=== PATIENT | female | born 1980 | race Caucasian/White ===

== ENCOUNTER 2019-09-19 17:02 | Emergency (ER) | payer OTHER, SELFPAY ==
[2019-09-19 17:38] VITALS: BP 144/92; PULSE 62; RESP 16; TEMP 36.7; O2SAT 98; BMI 50.4
--- NOTE | 2019-09-19 17:44 | XR_ITS ---
WS: [id number] HAND LEFT TECHNIQUE: 3 views of the left hand CLINICAL INFORMATION: L 4th digit pain COMPARISON: None. FINDINGS: Normal metacarpals. Normal MCP joint. Metacarpal heads are normal in appearance. Normal PIP and DIP j oints. No evidence of acute fracture or dislocation. Radiocarpal joint: Normal. Carpal bones: Normal. XR/XR hand LT min 3V* [id number] IMPRESSION: Normal fourth digit
[2019-09-19 18:04] VITALS: BP 108/70; PULSE 59; RESP 14; TEMP 36.9; O2SAT 100
[2019-09-19 18:07] VITALS: PULSE 60
--- NOTE | 2019-09-19 18:26 | ED_ITS ---
HPI - Extremity Problem General: Chief complaint: Extremity Problem,Nontraumatic Stated complaint: swollen finger left hand Time Seen by Provider: 09/19/19 17:51 Source: patient Mode of arrival: ambulatory Limitations: no limitations History of Present Illness: HPI Narrative: 39 yo female patient presents to the ER c/o pain to left ring finger x 3 weeks. Pt states she has an appointment in 2 weeks with PCP. Pt denies any injury or trauma. Pt does have history of raynaud's Pt denies any radiation of pain and states it is her entire ring finger. MD Complaint: extremity pain Location: left Quality: burning, sharp and other (tingling sensation) Radiation: none Relieving factors: nothing Exacerbating factors: other (cold) Associated symptoms: Reports no associated symptoms; Deny chest pain, fever(s) or rash Review of Systems Const: Denies: fever, chills or fatigue Card: Denies: chest pain Resp: Denies: shortness of breath GI: Denies: abdominal pain Musc: Reports: joint pain (left 4th digit finger pain) and joint swelling; Denies: redness, joint warmth, joint stiffness or limited range of motion Skin/Breast: Denies: rash Neuro: Denies: headache PFSH ED PFSH: Statuses (acute, chronic, etc) shown below reflect problem list status as previously entered and may not be historically accurate Social History Smoking and tobacco status: never smoked Physical Exam Const: COMMON NORMALS: no apparent distress and no limitations Resp: COMMON NORMALS: normal respiratory effort Extremity: COMMON NORMALS: normal to inspection, full ROM, normal capillary refill, no joint enlargement and no clubbing, cyanosis or edema NARRATIVE EX TREMITY EXAM: pt has tenderness to entire left ring finger NVI no obvious deformity. there is no erythema noted Skin: COMMON NORMALS: no rashes or lesions noted GENERAL SKIN EXAM: no rashes or lesions noted Course ED course: Pt is well appearing non toxic and in no acute distress. Pt xray is normal. Pt is NVI. pt has histroy of raynauds this could potentially be gout versus nerve pain. I will ry steroids and Indomethcin and have f/u with pcp. there is no evidence of infection. Vital Signs: Vital signs: Vital Signs Temperature 98.4 F 09/19/19 18:04 Pulse Rate 60 09/19/19 18:07 Respiratory Rate 14 09/19/19 18:04 Blood Pressure 108/70 09/19/19 18:04 Pulse Oximetry 100 09/19/19 18:04 Discharge Plan Discharge Patient Disposition: Home, Self-Care Clinical Impression: Finger pain, left Condition: Stable Prescriptions: New prednisone 20 mg tablet 20 mg PO BID 5 Days Qty: 10 RF: 0 Referrals: Kofi Thorpe MD [Primary Care Provider] - (as needed) Discharge Diet: Advance as tolerated Discharge Activity: Resume usual activity Activity Restrictions/Additional Instructions: Please take meds as prescribed Please follow up with PCP Please return with any worsening of symptoms Coding Level of Care Code ED Law Office Assistant for Conrado Lozano Exam Problem Focused
--- NOTE | 2019-09-19 19:00 | W.ED.EXTPRO ---
HPI - Extremity Problem General: Chief complaint: Extremity Problem,Nontraumatic Stated complaint: swollen finger left hand Time Seen by Provider: 09/19/19 17:51 Source: patient Mode of arrival: ambulatory Limitations: no limitations History of Present Illness: Location: left Quality: burning, sharp and other (tingling sensation) Relieving factors: nothing Exacerbating factors: other (cold) Associated symptoms: Deny chest pain, fever(s) or rash Review of Systems Const: Denies: fever(s), chills, body aches, change in appetite, change in weight, fatigue, malaise or diaphoresis Eyes: Denies: change in vision, blurry vision, blind spots, photophobia, eye discomfort, eye discharge, eye redness, floaters or seeing flashes ENMT: Denies: throat pain, uvular edema, enlarged tonsils, odynophagia, hoarseness, mouth pain, swelling of lips/tongue, oral sores, bleeding gums, dental pain, dry mouth, ear or mastoid pain, ear discharge, Change in hearing, tinnitus, disequilibrium, nasal discharge, nasal congestion, post nasal drip or sinus pain Card: Denies: chest pain, palpitations, irregular heart rhythm, edema, swelling of feet/ankles, lightheadedness, syncope, pre-syncope, dyspnea on exertion, orthopnea, leg pain with exertion or acrocyanosis Resp: Denies: dyspnea, productive cough, non-productive cough, wheezing, stridor, pain on inspiration, change in phlegm color, hemoptysis or chest congestion GI: Denies: abdominal pain, nausea, vomiting, hematemesis, dysphagia, diarrhea, constipation, GI cramping, change in bowel habits or rectal pain : Denies: flank pain, difficulty voiding, dysuria, urinary frequency, urinary urgency, urinary hesitancy or hematuria Musc: Denies: neck pain, back pain, extremity pain, joint pain, joint swelling, redness, joint warmth or deformity Skin/Breast: Denies: rash, pruritus, erythema, sores, new lesions, changes in skin color or dry skin Neuro: Denies: headache(s), numbness in extremities, weakness in extremities, sensory changes, lack of coordination, difficulty walking, frequent falls, dizziness, vertigo, confusion, behavioral changes, Slurred speech present, difficulty communicating thoughts or seizure-like activity Psych: Denies: anxiety, depression, suicidal ideation or homicidal ideation Endo: Denies: polyuria, polydipsia, tired all the time, cold intolerance, excessive sweating, flushing, hot flashes or heat intolerance Rajat/Lymph: Denies: easy bruising, easy bleeding, petechiae, purpura, enlarged lymph nodes or tender lymph nodes All/Imm: Denies: urticaria, throat swelling, tongue swelling, facial swelling, acute wheezing or itchy eyes PFSH ED PFSH: Statuses (acute, chronic, etc) shown below reflect problem list status as previously entered and may not be historically accurate Medical History Tenosynovitis of finger Surgical History H/O: hysterectomy History of esophagogastroduodenoscopy (EGD) History of tonsillectomy Family History Denies family history of Diabetes Hypertension Social History Smoking and tobacco status: never smoked Physical Exam Const: COMMON NORMALS: no acute distress and no limitations GENERAL APPEARANCE: cooperative HENMT: THROAT: no uvular edema Resp: COMMON NORMALS: normal respiratory effort, No retractions, No use of accessory muscles and clear to auscultation bilaterally AUSCULTATION: clear to auscultation bilaterally Cardio: COMMON NORMALS: regular rate and regular rhythm RATE: regular rate RHYTHM: regular rhythm Extremity: COMMON NORMALS: full ROM and capillary refill normal LEFT UPPER EXTREMITY: Yes hand & digits (swollen 2nd digit full ROM and NVI distally) Course Vital Signs: Vital signs: Vital Signs Temperature 98.0 F 09/19/19 19:29 Pulse Rate 57 L 09/19/19 19:29 Respiratory Rate 11 L 09/19/19 19:29 Blood Pressure 116/71 09/19/19 19:29 Pulse Oximetry 99 09/19/19 19:29 Discharge Plan Discharge Patient Disposition: Home Clinical Impression: Finger pain, left Condition: Stable Prescriptions: No Action azithromycin 250 mg tablet See Rx Instructions PO .COMPLEX Qty: 6 RF: 0 lidocaine HCl 10 mg/mL (1 %) solution 10 ml Tendon Sheath Inj. ONCE Qty: 1 RF: 0 betamethasone acet,sod phos [Celestone Soluspan] 6 mg/mL suspension 6 mg Tendon Sheath Inj. ONCE Qty: 1 RF: 0 meloxicam 7.5 mg tablet 7.5 mg PO DAILY Qty: 30 RF: 3 (DME) tennis elbow strap See Rx Instructions .Route .MEDSUPPLY Qty: 1 RF: 0 tretinoin 0.05 % cream 1 applic TOPICAL DAILY RF: 0 lithium carbonate 450 mg tablet extended release 1,350 mg PO DAILY RF: 0 pantoprazole 40 mg tablet,delayed release (DR/EC) 40 mg PO DAILY RF: 0 hydrocodone-acetaminophen 5-325 mg tablet 1 tab PO Q4H PRN (Reason: pain) Qty: 30 RF: 0 Discharge Orders: Discharge Order (Routine); Ordered 06/29/20 Ordered By: Lesley Martinez Referrals: Kofi Thorpe MD [Primary Care Provider] - (as needed) Discharge Diet: Advance as tolerated Discharge Activity: Resume usual activity Activity Restrictions/Additional Instructions: Please take meds as prescribed Please follow up with PCP Please return with any worsening of symptoms Coding Level of Care Code ED Structures Mechanic for Conrado Lozano
[2019-09-19 19:29] VITALS: BP 116/71; PULSE 57; RESP 11; TEMP 36.7; O2SAT 99
== END 2019-09-19 19:30 | disposition home or self-care (01) ==
PROVIDERS: Emergency Provider Registered Nurse; Family Provider Family Medicine; PCP Family Medicine
DX: M79.645 Pain in left finger(s) (principal); I73.00 Raynaud's syndrome without gangrene
CPT/HCPCS: 73130; 99281; 99282

== ENCOUNTER 2020-01-26 05:54 | Day surgery (SDC) | payer OTHER, SELFPAY ==
[2020-01-25 08:38] VITALS: BMI 51.0
[2020-01-26 06:11] VITALS: BP 122/80; PULSE 67; RESP 18; TEMP 36.7; O2SAT 98
--- NOTE | 2020-01-26 06:28 | W.PM.OPSUD ---
Surgery/Procedure H&P Update DATE OF PROCEDURE: January 26, 2020 DATE H&P PERFORMED: 01/12/20 H&P UPDATE INFORMATION: I have reviewed H&P completed within last 30 days, I have examined patient prior to procedure and No changes to prior documentation PREOP DIAGNOSIS: left ring trigger finger PRIMARY INDICATION FOR PROCEDURE: as above PLANNED PROCEDURE: Operation Date: 01/26/20 07:00 Proposed Procedures p left ring finger trigger digit release with synovectomy [id number] M65.9(Left) - Raul Chaney DO
--- NOTE | 2020-01-26 06:29 | PM.OP ---
Operative Report Date of procedure: January 26, 2020 Pre-op Diagnosis: left ring trigger finger Post-op diagnosis: same Post-op Findings: see below Procedure Done: release left ring finger A1 jose ramon Pathology: none sent Surgeon: Raul Chaney Anesthesia: MAC and Local Estimated blood loss (mL): 2 Tourniquet time (min): 15 Complications: none Findings: thickened synovium covering flexor tendons at level of A-1 jose ramon left ring finger. Increased amount of synovial fluid within the tendon sheath noted when sheath opened. Condition: stable Disposition: same day Brief History: 39-year-old white female with persistent triggering and discomfort related to her left ring finger. She's failed conservative treatment to include oral anti-inflammatory medications as well as tendon sheath injection. She presents today for elective release of her left ring trigger digit. Risks of surgery include aren't limited to failure to leave all symptoms, stiffness at the MCP or PIP joints. Wound healing complications possible recurrence. All questions are answered patient agreeable to proceed with surgery. Procedure: 1.5 zinacef Patient identified. Surgical site signed. Surgical permit signed. Patient 1.5 g of zinacef intravenously for surgical prophylaxis. She was taken to the operating room. She is placed supine on the operating room table. She received intravenous sedation. Time out was performed. Using alcohol prep a digital block of the left long finger was performed using 10 mL of a one-to-one mixture 1% lidocaine and half percent Marcaine. Tourniquet was placed but the upper aspect of the left upper extremity. The patient was sterilely prepped and draped usual fashion. The operative limb was exsanguinated using Esmarch bandage and the tourniquet inflated to 250 mm Hg pressure. A 2 cm transverse incision overlying the ring finger flexor tendons in the area of the A1 jose ramon was made with a skin knife. The incision was deepened using tenotomy scissors exposing underlying flexor tendons and tendon sheath. Retractors were placed on the radial and ulnar aspects of the flexor tendons to the left long finger. Using tenotomy scissors the A1 jose ramon was released. Using a hemostat verified that the release was complete. Using a hemostat we remove the flexor tendons from the wound and inspected them. No tendon pathology was noted other than thickening of the overlying tenosynovium. The wound was irrigated with Betadine-containing saline solution and antibiotic containing saline solution. Skin was closed with 4-0 nylon sutures. The patient was aroused from sedation and asked to flex and extend her finger he/she was able to do so without triggering of the left long finger. Antibiotic ointment was applied to the incision line followed by sterile dressings. The tourniquet was deflated during application of dressings. The patient was transferred back to outpatient surgery. All counts are correct. He/She tolerated surgery well.
[2020-01-26] MEDS: sodium chloride 0.9% 1,000 ML 30 ML IV (06:30)
[2020-01-26] MEDS: ketorolac 30 mg/mL INJ IVP (06:33)
--- NOTE | 2020-01-26 06:42 | ANES.PREANE2 ---
Pre-Anesthetic Assessment Pre-Anesthetic Assessment: Height/Weight: Height 1.55 m Weight 122.47 kg Temp Pulse Resp BP Pulse Ox 98.1 F 67 18 122/80 98 01/26/20 06:11 01/26/20 06:11 01/26/20 06:11 01/26/20 06:11 01/26/20 06:11 Preop Diagnosis: left ring trigger finger Proposed Procedure: Operation Date: 01/26/20 07:00 Proposed Procedures p left ring finger trigger digit release with synovectomy [id number] M65.9(Left) - Raul Chaney, DO Was Beta Sandy taken within 24 hours: N/A Last intake: Intake Last Liquid Date 01/25/20 Last Liquid Time 20:30 Last Solid Date 01/25/20 Last Solid Time 17:00 Social: Social History: No alcohol and No tobacco Exam: Pre-Anes Outpt Exam: alert, oriented x 3, clear to auscultation bilaterally and regular rate & rhythm Airway: Submandibular: WNL Cervical ROM: WNL MP: 1 Dentition: Full History/ROS: No significant history except as noted Pulmonary: Pulmonary: None reported CV/HEM: CV/HEM: None reported : : None reported Hepatic: Hepatic: None reported GI: GI: GERD Musc/skel: Musc/skel: None reported Neuropsych: Neuropsych: Bipolar Anesthetic Plan: ASA status: 2 Anesthesia: MAC PFSH Anesthesia PFSH: Medical History Tenosynovitis of finger Surgical History H/O: hysterectomy History of esophagogastroduodenoscopy (EGD) History of tonsillectomy Family History Denies family history of Diabetes Hypertension Social History Smoking and tobacco status: never smoked Data Anesthesia Cardiac Studies: No Data to Display
[2020-01-26] MEDS: cefUROXime 1,500 MG in sodium chloride 0.9% (plus) 50 ML 100 MG IV (06:57)
[2020-01-26] MEDS: lidocaine 1% INJ 20 mL INJECTION (07:13)
[2020-01-26] MEDS: neomycin-poly-bacitracin oint 28 gm 1 APPLIC TOPICAL (07:30)
[2020-01-26 07:50] VITALS: BP 136/83; PULSE 73; RESP 18; TEMP 36.7; O2SAT 98
[2020-01-26 08:09] VITALS: BP 143/79; PULSE 67; RESP 18; TEMP 36.7; O2SAT 98
== END 2020-01-26 08:17 | disposition home or self-care (01) ==
PROVIDERS: PCP Family Medicine; Visit Provider Orthopaedic Surgery
PROC: (CPT 26055; principal; 2020-01-26 07:00)
DX: M65.342 Trigger finger, left ring finger (principal); K21.9 Gastro-esophageal reflux disease without esophagitis
CPT/HCPCS: 26055; 12345; 96365; 96374; J0131; J0697; J1580; J1885; J2001; J2704; J3010; J3490; J7030

== ENCOUNTER → 2020-02-24 15:00 | Outpatient (BNVA) | payer OTHER, SELFPAY | PROVIDERS: PCP Family Medicine; Visit Provider Nurse Practitioner Family | DX: R05 Cough (principal) | CPT/HCPCS: 87635 ==

== ENCOUNTER → 2020-11-12 08:56 | Outpatient (BNVA) | payer OTHER, SELFPAY | PROVIDERS: PCP Family Medicine; Visit Provider Internal Medicine Rheumatology | DX: M25.50 Pain in unspecified joint (principal); Z79.899 Other long term (current) drug therapy; M77.10 Lateral epicondylitis, unspecified elbow; M70.61 Trochanteric bursitis, right hip; M70.62 Trochanteric bursitis, left hip; Y93.9 Activity, unspecified; Z68.39 Body mass index [BMI] 39.0-39.9, adult | CPT/HCPCS: 99204 ==

== ENCOUNTER 2020-11-12 15:06 | Outpatient (CLI) | payer OTHER, SELFPAY ==
--- NOTE | 2020-11-12 15:33 | XRR_ITS ---
PROCEDURE INFORMATION: Exam: XR Left Hand Exam date and time: 11/12/2020 3:35 PM Age: 40 years old Clinical indication: Pain; Hand; Left; Prior surgery; Surgery type: Trigger finger; Additional info: M25.50 - pain in unspecified joint TECHNIQUE: Imaging protocol: XR Left hand. Views: 3 or more views. Total images: 3 COMPARISON: CR XR hand LT min 3V* [id number] 09/19/2019 6:28 PM FINDINGS: Bones/joints: No visible acute osseous abnormality, fracture, subluxation, or dislocation. No radiographically visible joint effusion. Soft tissues: Soft tissues without evidence of edema, swelling, contusion, emphysema, or radiopaque foreign body. XR/XR hand LT min 3V* [id number] IMPRESSION: Nonacute.
--- NOTE | 2020-11-12 15:33 | XRR_ITS ---
PROCEDURE INFORMATION: Exam: XR Pelvis Exam date and time: 11/12/2020 3:35 PM Age: 40 years old Clinical indication: Hip pain; Bilateral; Additional info: M25.50 - pain in unspecified joint TECHNIQUE: Imaging protocol: XR pelvis. Views: 1 or 2 view. Total images: 1 COMPARISON: CT abdomen pelvis w con* [id number] 11/20/2016 12:02 PM FINDINGS: Bones/joints: Unremarkable. No acute fracture. Soft tissues: Unremarkable. XR/XR pelvis 1-2V* [id number] IMPRESSION: No acute findings.
--- NOTE | 2020-11-12 15:33 | XRR_ITS ---
PROCEDURE INFORMATION: Exam: XR Chest Exam date and time: 11/12/2020 3:35 PM Age: 40 years old Clinical indication: Patient HX: Chest pain around sternum; Additional info: M25.50 - pain in unspecified joint TECHNIQUE: Imaging protocol: XR of the chest Views: 2 views. Total images: 2 COMPARISON: CR Chest 1 [place] [id number] 11/14/2016 6:45 AM FINDINGS: Lungs: No visible active interstitial or alveolar airspace disease. Pleural spaces: Unremarkable. No pleural effusion. No pneumothorax. Heart/Mediastinum: Unremarkable. No cardiomegaly. Bones/joints: Increased thoracic kyphosis. Pectus carinatum. Mild scoliotic curvature of the spine. Organs: Status post cholecystectomy. XR/XR chest 2V* [id number] IMPRESSION: Nonacute.
[2020-11-12 17:21] LABS: 25 Hydroxy Vitamin D 15 ng/mL (30-100); C Reactive Protein 1.8 mg/L (0.0-4.9); Thyroid Stimulating Hormone 2.31 uIU/mL (0.27-4.20)
[2020-11-12 17:57] LABS: Erythrocyte Sedimentation Rate 24 mm/hr (0-15)
[2020-11-14 12:37] LABS: Cyclic Citrullinated Peptide <16 UNITS
== END 2020-11-12 15:07 | disposition home or self-care (01) ==
LOC: LAB 15:10
PROVIDERS: PCP Family Medicine; Visit Provider Internal Medicine Rheumatology
DX: M25.50 Pain in unspecified joint (principal); Z68.39 Body mass index [BMI] 39.0-39.9, adult; Z79.899 Other long term (current) drug therapy
CPT/HCPCS: 36415; 71046; 72170; 73130; 82306; 84439; 84443; 85651; 86140

== ENCOUNTER → 2020-12-12 13:56 | Outpatient (BNVA) | payer OTHER, SELFPAY | PROVIDERS: PCP Family Medicine; Visit Provider Internal Medicine Rheumatology | DX: M25.50 Pain in unspecified joint (principal); Z79.899 Other long term (current) drug therapy; M77.11 Lateral epicondylitis, right elbow; M77.12 Lateral epicondylitis, left elbow; M70.61 Trochanteric bursitis, right hip; M70.62 Trochanteric bursitis, left hip; Y93.9 Activity, unspecified | CPT/HCPCS: 99214 ==

== ENCOUNTER 2021-03-27 08:38 | Outpatient (CLI) | payer OTHER, SELFPAY ==
[2021-03-27 10:48] LABS: Basophils # 0.1 10^3/uL (0.0-0.1); Basophils % 0.8 %; Eosinophils # 0.4 10^3/uL (0.0-0.8); Eosinophils % 3.4 %; Hematocrit 41.8 % (37.0-47.0); Hemoglobin 12.4 g/dL (11.5-15.3); Lymphocytes # 2.2 10^3/uL (0.8-4.8); Lymphocytes % 20.8 %; Mean Corpuscular HGB Conc 29.7 g/dL (30.0-36.0); Mean Corpuscular Hemoglobin 30.3 pg (28.0-34.0); Mean Corpuscular Volume 102.2 fL (81-99); Monocytes # 0.7 10^3/uL (0.2-0.9); Neutrophils # 7.16 10^3/uL (1.8-7.7); Neutrophils % 67.7 %; Nucleated Red Blood Cells % 0 %; Platelet Count 297 10^3/cmm (130-400); Red Blood Count 4.09 10^6/uL (4.1-5.3); Red Cell Distribution Width 14.1 % (12.1-15.1); White Blood Count 10.6 10^3/uL (4.0-10.0)
[2021-03-27 11:21] LABS: Alanine Aminotransferase 19 U/L (0-33); Albumin Level 4.4 g/dL (3.5-5.2); Alkaline Phosphatase 54 IU/L (35-105); Aspartate Amino Transferase 18 U/L (0-32); C Reactive Protein 0.6 mg/L (0.0-4.9); Globulin 2.6 g/dL (1.3-4.6); Glomerular Filtration Rate 137.4 mL/min (90-130); Total Bilirubin 0.4 mg/dL (0.15-1.2)
[2021-03-29 19:23] LABS: HLA-B27 NEGATIVE (NEGATIVE)
== END 2021-03-27 08:39 | disposition home or self-care (01) ==
PROVIDERS: PCP Family Medicine; Visit Provider Internal Medicine Rheumatology
DX: M19.90 Unspecified osteoarthritis, unspecified site (principal); M45.9 Ankylosing spondylitis of unspecified sites in spine; Z79.899 Other long term (current) drug therapy
CPT/HCPCS: 36415; 80076; 82565; 85025; 86140; 86812

== ENCOUNTER 2021-07-15 16:16 | Outpatient (CLI) | payer OTHER, SELFPAY ==
[2021-07-15 16:40] LABS: Basophils # 0.1 10^3/uL (0.0-0.1); Basophils % 0.6 %; Eosinophils % 0.2 %; Hematocrit 37.9 % (37.0-47.0); Hemoglobin 11.6 g/dL (11.5-15.3); Lymphocytes # 2.7 10^3/uL (0.8-4.8); Lymphocytes % 31.1 %; Mean Corpuscular HGB Conc 30.6 g/dL (30.0-36.0); Mean Corpuscular Hemoglobin 30.4 pg (28.0-34.0); Mean Corpuscular Volume 99.5 fl (81-99); Mean Platelet Volume 10.2 fL (7.4-10.4); Monocytes # 0.7 10^3/uL (0.2-0.9); Monocytes % 8.4 %; Neutrophils % 59.4 %; Nucleated Red Blood Cells % 0 %; Platelet Count 331 10^3/cmm (130-400); Red Blood Count 3.81 10^6/uL (4.1-5.3); Red Cell Distribution Width 13.6 % (12.1-15.1); White Blood Count 8.6 10^3/uL (4.0-10.0)
[2021-07-15 17:34] LABS: Alanine Aminotransferase 14 U/L (0-33); Albumin Level 4.5 g/dL (3.5-5.2); Alkaline Phosphatase 54 IU/L (35-105); Aspartate Amino Transferase 14 U/L (0-32); Globulin 2.2 g/dL (1.3-4.6); Glomerular Filtration Rate 111.3 mL/min (90-130); Total Bilirubin 0.3 mg/dL (0.15-1.2); Total Protein 6.7 g/dL (6.6-8.7)
== END 2021-07-15 16:17 | disposition home or self-care (01) ==
PROVIDERS: PCP Family Medicine; Visit Provider Internal Medicine Rheumatology
DX: M25.50 Pain in unspecified joint (principal); Z79.899 Other long term (current) drug therapy
CPT/HCPCS: 36415; 80076; 82565; 85025

== ENCOUNTER 2021-10-28 13:37 | Outpatient (CLI) | payer OTHER, SELFPAY ==
[2021-10-28 14:10] LABS: Basophils % 0.5 %; Eosinophils # 0.3 10^3/uL (0.0-0.8); Eosinophils % 4.7 %; Hematocrit 41.2 % (37.0-47.0); Hemoglobin 12.4 g/dL (11.5-15.3); Lymphocytes # 1.2 10^3/uL (0.8-4.8); Lymphocytes % 18.5 %; Mean Corpuscular HGB Conc 30.1 g/dL (30.0-36.0); Mean Corpuscular Hemoglobin 31.6 pg (28.0-34.0); Mean Corpuscular Volume 104.8 fl (81-99); Mean Platelet Volume 10.4 fL (7.4-10.4); Monocytes # 0.9 10^3/uL (0.2-0.9); Monocytes % 13.3 %; Neutrophils # 4.16 10^3/uL (1.8-7.7); Neutrophils % 62.5 %; Nucleated Red Blood Cells % 0 %; Platelet Count 275 10^3/cmm (130-400); Red Blood Count 3.93 10^6/uL (4.1-5.3); Red Cell Distribution Width 14.5 % (12.1-15.1); White Blood Count 6.6 10^3/uL (4.0-10.0)
[2021-10-28 14:38] LABS: Alanine Aminotransferase 28 U/L (0-33); Albumin Level 4.4 g/dL (3.5-5.2); Alkaline Phosphatase 65 IU/L (35-105); Aspartate Amino Transferase 21 U/L (0-32); C Reactive Protein 9.7 mg/L (0.0-4.9); Globulin 3.2 g/dL (1.3-4.6); Glomerular Filtration Rate 110.7 mL/min (90-130); Total Bilirubin 0.3 mg/dL (0.15-1.2); Total Protein 7.6 g/dL (6.6-8.7)
== END 2021-10-28 13:38 | disposition home or self-care (01) ==
PROVIDERS: PCP Family Medicine; Visit Provider Internal Medicine Rheumatology
DX: M25.50 Pain in unspecified joint (principal); Z79.899 Other long term (current) drug therapy
CPT/HCPCS: 80076; 82565; 85025; 86140

== ENCOUNTER → 2022-07-03 13:32 | Outpatient (BNVA) | payer OTHER, SELFPAY | PROVIDERS: PCP Family Medicine; Visit Provider Podiatrist Foot & Ankle Surgery | DX: M25.572 Pain in left ankle and joints of left foot (principal); M76.822 Posterior tibial tendinitis, left leg; Z87.81 Personal history of (healed) traumatic fracture | CPT/HCPCS: 73630 ==

== ENCOUNTER 2022-07-13 15:22 | Outpatient (CLI) | payer OTHER, SELFPAY ==
[2022-07-13 15:40] LABS: Basophils # 0.1 10^3/uL (0.0-0.1); Basophils % 0.6 %; Eosinophils # 0.4 10^3/uL (0.0-0.8); Eosinophils % 4.1 %; Hematocrit 37.1 % (37.0-47.0); Hemoglobin 11.5 g/dL (11.5-15.3); Lymphocytes # 2.2 10^3/uL (0.8-4.8); Lymphocytes % 22.8 %; Mean Corpuscular Hemoglobin 31.6 pg (28.0-34.0); Mean Corpuscular Volume 101.9 fl (81-99); Mean Platelet Volume 10.5 fL (7.4-10.4); Monocytes % 10.1 %; Neutrophils # 5.84 10^3/uL (1.8-7.7); Neutrophils % 62.2 %; Nucleated Red Blood Cells % 0 %; Platelet Count 337 10^3/cmm (130-400); Red Blood Count 3.64 10^6/uL (4.1-5.3); Red Cell Distribution Width 13.9 % (12.1-15.1); White Blood Count 9.4 10^3/uL (4.0-10.0)
[2022-07-13 16:08] LABS: Alanine Aminotransferase 10 U/L (0-33); Albumin Level 4.1 g/dL (3.5-5.2); Alkaline Phosphatase 60 U/L (35-105); Aspartate Amino Transferase 13 U/L (0-32); Glomerular Filtration Rate 92.7 mL/min (90-130); Total Bilirubin 0.2 mg/dL (0.15-1.2); Total Protein 7.1 g/dL (6.6-8.7)
== END 2022-07-13 15:23 | disposition home or self-care (01) ==
LOC: LAB 15:24
PROVIDERS: PCP Family Medicine; Visit Provider Internal Medicine Rheumatology
DX: M19.90 Unspecified osteoarthritis, unspecified site (principal); Z79.899 Other long term (current) drug therapy
CPT/HCPCS: 36415; 80076; 82565; 85025; 86140

== ENCOUNTER 2022-07-17 11:38 | Outpatient (CLI) | payer OTHER, SELFPAY ==
--- NOTE | 2022-07-17 12:00 | MR_ITS ---
WS: [id number] MRI LEFT FOOT non- CONTRAST. COMPARISON: Radiograph 07/03/2022, prior LEFT ankle MRI 12/13/2017 Multiplanar, multisequence imaging is performed without contrast. As per history has a prior tendon transfer. This appears to be the flexor digitorum longus which is s maller caliber and surrounded by some increased fluid. Small amount of increased fluid within the ten don suggesting a split tear just lateral to the calcaneus. This may not be acute. This tendon extends to the navicular. There is also small amount of increased fluid in the adjacent posterior tibial ten don sheath which is normal caliber. The peroneus brevis and longus tendons are normal. Achilles tendo n is normal. There is no marrow edema or fracture. There is mild flattening of the normal arch of the foot which i s better appreciated on radiographs. No marrow edema. Small amount of fluid in the posterior recess o f the ankle. The visualized mid and hindfoot are negative. The distal foot is not included as the sym ptoms were more in the posterior and midfoot. No widening of the Lisfranc joint. The extensor tendons are normal. MR/MR foot LT wo con* [id number] IMPRESSION: 1. Abnormal appearance to the flexor digitorum longus tendon. As per history t here has been a prior tendon transfer. This tendon is small caliber but does ex tend to the navicular which is probably the transverse site. There is no full-t hickness tear or retraction. There is increased fluid in the tendon sheath. Nery pect there may be a split tear just lateral to the mid calcaneus. 2. No marrow edema or fracture.
== END 2022-07-17 11:39 | disposition home or self-care (01) ==
PROVIDERS: PCP Family Medicine; Visit Provider Podiatrist Foot & Ankle Surgery
DX: M76.822 Posterior tibial tendinitis, left leg (principal)
CPT/HCPCS: 73718

== ENCOUNTER 2022-12-29 12:44 | Outpatient (CLI) | payer OTHER, SELFPAY ==
--- NOTE | 2022-12-29 12:59 | MR_ITS ---
WS: [id number] MRI HEAD WITH CONTRAST TECHNIQUE: Sagittal T1, T2 axial, T2 axial FLAIR, axial susceptibility weighted imaging, axial diffus ion weighted images, and coronal T2 images were obtained. Pre and post-T1 axial and post T1 coronal i mages. ADC and FSPGR images. CLINICAL INFORMATION: HEADACHE COMPARISON: None. 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 Normal 4th ventricle. No hydrocephalus. Mild crowding of the foramen magnum. Normal brain stem signal. Normal posterior fossa. Normal vascular flow voids at the skull base. No extra-axial fluid collection s. No evidence of mass or mass effect. No hemosiderin on susceptibly weighted images. Normal optic ch iasm and pituitary infundibulum. Temporal lobes and hippocampal formations are normal in appearance. Normal cavernous sinuses and Meckel's cave. No abnormal gadolinium enhancement. Normal dural venous sinuses. Normal posterior nasopharynx. Normal parapharyngeal fat. MR/MR head wo/w con [id number] IMPRESSION: 1. No evidence of restricted diffusion to suggest acute ischemia. 2. No suspicious intracanal signal abnormalities. 3. Chiari 1 malformation with cerebellar tonsils 5 millimeters below the damon en magnum. Normal 4th ventricle. Normal brain stem signal. Noncontrast MRI cerv ical spine recommended to exclude syrinx in the setting of Chiari malformation. 4. No hemosiderin on susceptibly weighted images. 5. No abnormal gadolinium enhancement. 6. No hemosiderin on susceptibly weighted images.
[2022-12-29] MEDS: gadobenate dimeglumine 20 mL vial IV (14:03)
== END 2022-12-29 12:45 | disposition home or self-care (01) ==
LOC: RAD 12:47
PROVIDERS: PCP Family Medicine; Visit Provider Family Medicine
DX: R51.9 Headache, unspecified (principal); G93.5 Compression of brain
CPT/HCPCS: 70553; A9577

== ENCOUNTER 2023-01-29 07:06 | Outpatient (CLI) | payer OTHER, SELFPAY ==
--- NOTE | 2023-01-29 | MR_ITS ---
WS: [id number] MRI CERVICAL SPINE NONCONTRAST TECHNIQUE: Sagittal T1, T2 and STIR imaging. Axial T2, gradient, and fiesta imaging. CLINICAL INFORMATION: CHIARI COMPARISON: None. FINDINGS: Straightening of the normal cervical lordosis. No high-grade central canal stenosis. Cord signal is n ormal. Stable Chiari I malformation. No syrinx in the cervical cord. Cord signal is normal. C2-C3: Normal C3-C4: Normal. C4-C5: Mild facet arthropathy. Spinal canal and foramen are patent. C5-C6: Minimal disc bulging. Mild facet arthropathy. Mild LEFT foraminal narrowing. Spinal canal and foramen are patent. C6-C7: Minimal disc bulging. Spinal canal and foramen are patent. C7-T1: Normal. Visualized brain stem structures: Normal. Prevertebral soft tissues: Normal. MR/MR cervical spin wo con* [id number] IMPRESSION: 1. Stable Chiari 1 malformation. No syrinx in the cervical cord. 2. Cord signal is normal. 3. No significant spinal canal or foraminal narrowing. 4. Mild facet arthropathy C4-C5 and C5-C6. 5. Mild LEFT C5-C6 bony foraminal narrowing.
== END 2023-01-29 07:07 | disposition home or self-care (01) ==
PROVIDERS: PCP Family Medicine; Visit Provider Family Medicine
DX: Q07.00 Arnold-Chiari syndrome without spina bifida or hydrocephalus (principal)
CPT/HCPCS: 72141

== ENCOUNTER → 2023-08-17 08:39 | Outpatient (BNVA) | payer OTHER, SELFPAY | PROVIDERS: PCP Family Medicine; Referring Provider Family Medicine; Visit Provider Psychiatry & Neurology Neurology | DX: R51.9 Headache, unspecified (principal); G40.A09 Absence epileptic syndrome, not intractable, without status epilepticus; R55 Syncope and collapse | CPT/HCPCS: 36415; 82306; 82746; 83921; 84439; 84443; 84481 ==

== ENCOUNTER → 2023-09-27 15:33 | Outpatient (BNVA) | payer OTHER, SELFPAY | PROVIDERS: PCP Family Medicine; Visit Provider Internal Medicine Rheumatology | DX: M19.90 Unspecified osteoarthritis, unspecified site (principal); Z79.899 Other long term (current) drug therapy; Z71.85 Encounter for immunization safety counseling | CPT/HCPCS: 36415; 80076; 82565; 85025; 85651; 86140 ==

== ENCOUNTER → 2023-09-29 15:45 | Outpatient (BNVA) | payer OTHER, SELFPAY | PROVIDERS: PCP Family Medicine; Referring Provider Specialist; Visit Provider Specialist | DX: M25.561 Pain in right knee (principal) | CPT/HCPCS: 73560; 73565 ==

== ENCOUNTER 2023-10-13 15:34 | Outpatient (CLI) | payer OTHER, SELFPAY | END 2023-10-13 15:35 | disposition home or self-care (01) | LOC: LAB 15:35 | PROVIDERS: PCP Family Medicine; Visit Provider Psychiatry & Neurology Neurology | DX: R94.01 Abnormal electroencephalogram [EEG] (principal); R51.9 Headache, unspecified; G40.A09 Absence epileptic syndrome, not intractable, without status epilepticus; R55 Syncope and collapse | CPT/HCPCS: 36415; 82607 ==

== ENCOUNTER 2023-11-19 15:28 | Outpatient (CLI) | payer OTHER, SELFPAY ==
--- NOTE | 2023-11-19 16:00 | MR_ITS ---
WS: [id number] MRI RIGHT KNEE HISTORY: right knee pain COMPARISON: Knee radiograph 09/29/2023 Anterior cruciate ligament: Intact. Posterior cruciate ligament: Intact. Medial collateral ligament: Increased fluid along the medial collateral ligament, greatest below the joint line. The very distal MCL appears thinned and suspect mild sprain. No retraction or full-thickn ess tear. Posterior lateral corner structures: Intact. Medial menisci: Intact. Normal signal, size and shape. Lateral meniscus: Intact. Normal signal, size and shape. Extensor mechanism: Distal quadriceps tendon and patellar tendons are intact. Fluid and soft tissue: Small suprapatellar joint effusion. Moderate Hurst's cyst containing debris an d loose bodies. Osseous and articular structures: Patellofemoral compartment: Lateral subluxation of the patella. The patellar retinaculum appears inta ct. The lateral patellar retinaculum is thinned and stretched but there is no edema. Mild chondromala nancy and thinning of the cartilage. Medial compartment: Very minimal narrowing medial compartment. Marrow edema in the medial tibial plat eau but no fracture. Lateral compartment: Very mild narrowing. No marrow edema. IMPRESSION: 1. Increased fluid surrounding the MCL distal to the knee joint. The distal MCL is not imaged in its entirety within the axial plane but there is probably a mild sprain. 2. Moderate amount of marrow edema in the medial tibial plateau. No fracture. 3. Moderate size Hurst's cyst with loose bodies and debris. 4. Lateral subluxation of the patella. Thinning of the lateral patellar retinaculum appears chronic. May be from a prior dislocation and tear with healing.
== END 2023-11-19 15:29 | disposition home or self-care (01) ==
PROVIDERS: PCP Family Medicine; Visit Provider Specialist
DX: S83.011A Lateral subluxation of right patella, initial encounter (principal); M71.21 Synovial cyst of popliteal space [Baker], right knee; M23.41 Loose body in knee, right knee; X58.XXXA Exposure to other specified factors, initial encounter
CPT/HCPCS: 73721

== ENCOUNTER → 2024-02-22 06:57 | Outpatient (BNVA) | payer OTHER, SELFPAY | PROVIDERS: PCP Family Medicine; Visit Provider Podiatrist Foot & Ankle Surgery | DX: M79.671 Pain in right foot; M21.611 Bunion of right foot; M21.41 Flat foot [pes planus] (acquired), right foot; M76.821 Posterior tibial tendinitis, right leg; M20.41 Other hammer toe(s) (acquired), right foot | CPT/HCPCS: 73630 ==

== ENCOUNTER 2024-05-26 12:54 | Outpatient (CLI) | payer OTHER, SELFPAY ==
[2024-05-26 13:39] LABS: Basophils # 0.1 10^3/uL (0.0-0.1); Basophils % 0.9 %; Eosinophils # 0.6 10^3/uL (0.0-0.8); Eosinophils % 7.9 %; Hematocrit 36.7 % (36-47); Lymphocytes % 26.2 %; Mean Corpuscular HGB Conc 30.5 g/dL (30-55); Mean Corpuscular Hemoglobin 29.1 pg (27-33); Mean Corpuscular Volume 95.3 fl (85-98); Mean Platelet Volume 11.1 fL (7.4-10.4); Monocytes # 0.8 10^3/uL (0.2-0.9); Neutrophils # 4.08 10^3/uL (1.8-7.7); Neutrophils % 54.7 %; Nucleated Red Blood Cells % 0 %; Platelet Count 239 10^3/cmm (157-399); Red Blood Count 3.85 10^6/uL (3.85-5.65); Red Cell Distribution Width 14.9 % (12.1-15.1); White Blood Count 7.47 10^3/uL (3.29-11.43)
[2024-05-26 13:57] LABS: Alkaline Phosphatase 61 U/L (35-105); Aspartate Amino Transferase 22 U/L (0-32); Globulin 2.7 g/dL (1.3-4.6); Glomerular Filtration Rate 109.6 mL/min (90-130); Total Bilirubin 0.4 mg/dL (0.15-1.2); Total Protein 6.7 g/dL (6.6-8.7)
[2024-05-26 14:09] LABS: Alanine Aminotransferase 20 U/L (0-33)
[2024-05-30 16:49] LABS: HIV RNA (CPY/ML) NOT DETECTED (NOT DETECTED); HIV RNA LOG NOT DETECTED copies/mL (NOT DETECTED)
== END 2024-05-26 12:55 | disposition home or self-care (01) ==
LOC: LAB 12:56
PROVIDERS: Absent Provider Psychiatry & Neurology Neurology; PCP Family Medicine; Visit Provider Internal Medicine Rheumatology
DX: Z79.899 Other long term (current) drug therapy (principal); G93.2 Benign intracranial hypertension; M19.90 Unspecified osteoarthritis, unspecified site
CPT/HCPCS: 36415; 80076; 82565; 85025; 86140; 87536

== ENCOUNTER 2024-06-08 15:16 | Outpatient (CLI) | payer OTHER, SELFPAY ==
--- NOTE | 2024-06-08 16:00 | MR_ITS ---
WS: [id number] MRI BRAIN WITH AND WITHOUT CONTRAST HISTORY: M54.81 - Occipital neuralgia COMPARISON: 12/29/2022 TECHNIQUE: Multiplanar imaging performed through the brain with MultiHance 20 ml's IV. No acute infarcts are seen. Ng-white matter differentiation is well preserved. No susceptibility artifacts or prior lacunar infarcts. Ventricles and extra-axial spaces are normal. Clivus and pituitary gland are normal. Very slight inferior descent of the cerebellar tonsils similar to the prior examination. No dilatatio n of the fourth ventricle. Mild Chiari I malformation as previously described. Upper cervical cord is normal signal. Postcontrast images are negative for masses or vascular malformations. Dural venous sinuses are normal. Paranasal sinuses: Well aerated with no significant disease. Mastoid air cells: Normal. Calvarium and scalp: Normal. MR/MR head wo/w con [id number] IMPRESSION: 1. Stable mild Chiari I malformation with no fourth ventricle dilatation. Very minimal displacement of the cerebellar tonsils. 2. No infarct or volume loss. 3. No enhancing masses.
[2024-06-08] MEDS: gadobenate dimeglumine 20 mL vial IV (16:01)
== END 2024-06-08 15:17 | disposition home or self-care (01) ==
PROVIDERS: PCP Family Medicine; Visit Provider Psychiatry & Neurology Neurology
DX: M54.81 Occipital neuralgia (principal); S16.1XXA Strain of muscle, fascia and tendon at neck level, initial encounter; R42 Dizziness and giddiness; H53.8 Other visual disturbances; R94.01 Abnormal electroencephalogram [EEG]; G40.A09 Absence epileptic syndrome, not intractable, without status epilepticus; R55 Syncope and collapse; X58.XXXA Exposure to other specified factors, initial encounter
CPT/HCPCS: 70553

== ENCOUNTER 2024-06-16 08:46 | Outpatient (CLI) | payer OTHER, SELFPAY ==
--- NOTE | 2024-06-16 09:00 | FL_ITS ---
WS: [id number] LUMBAR PUNCTURE CLINICAL INFORMATION: G93.2 - Benign intracranial hypertension COMPARISON: None. TECHNIQUE: Informed consent: The procedure and its potential risk and complications were discussed with the rosita ent. Verbal and written consent was obtained. Timeout: A timeout was performed to confirm correct patient, procedure, and site. Patient was prepped and draped in the usual sterile fashion. Lidocaine 1% was used for local anesthes ia. Utilizing fluoroscopic guidance, a 5.0 inch 22-gauge spinal needle was advanced into the subarach noid space at L3-L4 via left oblique sublaminar approach. Free flow of clear CSF was obtained. 12 cc of CSF was collected and sent the lab for further analysis. FLUOROSCOPIC TIME: 1min [id number] # of spot films: 1 FL/FL guided lumbarpunc dx* [id number] IMPRESSION: 1. Fluoroscopically guided lumbar puncture. No immediate complications 2. Opening pressure 27 cmH2O 3. Closing pressure 23 cmH2O
[2024-06-16 10:31] LABS: Appearance CSF CLEAR (CLEAR); Color CSF COLORLESS (COLORLESS); PATH Referral YES
[2024-06-16 10:39] LABS: Mononuclear WBC CSF % 100 % (50-90); Polynuclear WBC CSF % 0 % (0-10); Red Blood Cell CSF 0 10^3/uL (0-0); White Blood Cell CSF 1 /uL (0-5)
[2024-06-16 10:56] LABS: Glucose CSF 55 mg/dL (40-70); Total Protein CSF 32 mg/dL (15-45)
[2024-06-19 20:39] LABS: Epstein Barr Virus DNA PCR Not Detected Log cps/mL (Not Detected); Epstein Barr Virus DNA QN PCR Not Detected copies/mL (Not Detected); Epstein Barr Virus Source Results Below
[2024-06-20 08:06] LABS: CMV DNA By PCR Not Detected (Not Detected); CMV DNA, QN PCR Not Detected Log IU/mL (Not Detected); SOURCE Results Below
[2024-06-20 19:46] LABS: JC Virus DNA Ultra QN PCR NOT DETECTED Log IU/mL; JC Virus Quant CSF PCR NOT DETECTED
[2024-06-21 23:49] LABS: VDRL on CSF NON-REACTIVE
== END 2024-06-16 08:47 | disposition home or self-care (01) ==
LOC: RAD 08:47
PROVIDERS: PCP Family Medicine; Visit Provider Psychiatry & Neurology Neurology
DX: G93.2 Benign intracranial hypertension (principal); S16.1XXA Strain of muscle, fascia and tendon at neck level, initial encounter; X58.XXXA Exposure to other specified factors, initial encounter
CPT/HCPCS: 36415; 62328; 80503; 82945; 84157; 86382; 86403; 86592; 86788; 86789; 87015; 87070; 87075; 87116; 87205; 87206; 87327; 87496; 87798; 87799; 87801; 89050

== ENCOUNTER 2024-06-30 05:55 | Day surgery (SDC) | payer OTHER, SELFPAY ==
[2024-06-30] VITALS (13 sets, daily range): BP systolic 100–131; BP diastolic 54–93; PULSE 60–70; RESP 16–24; TEMP 36.2–36.7; O2SAT 90–96; BMI 37.8
--- NOTE | 2024-06-30 | XR_ITS ---
WS: [id number] Exam: XR foot LT 2V [id number] Date/Time of Exam: 06/30/2024 12:00 AM Reason For Exam: MYA PICS Intraoperative images of the LEFT foot are submitted. There is an osteotomy of the distal fifth metat arsal with a bridging orthopedic pin. There is also plate and screw fixation of the first metatarsal cuneiform joint. Additionally oblique coursing screws bridge the posterior subtalar joint. Osteotomy of the medial distal first metatarsal. Joint replacements involving the PIP joints of the second and fourth toes. XR/XR foot LT 2V [id number] IMPRESSION: 1. Postoperative changes as detailed above.
--- NOTE | 2024-06-30 06:11 | ANES.PREANE2 ---
Pre-Anesthetic Assessment Height/Weight: Height 5 ft 1 in Preop Diagnosis: Flatfoot, bunion and hammertoes, right lower extremity Operation Date: 06/30/24 07:00 Proposed Procedures p Subtalar Joint Fusion(Right) - Moisés Mariano DPM s Kidner Procedure(Right) - NISHA Parisi Bunionectomy Lapidus(Right) - NISHA Parisi Jonatan Osteotomy(Right) - NISHA Parisi Hammertoe Correction second hammertoe correction, third hammertoe correction and fourth hammertoe correction.(Right) - NISHA Parisi Vasquez osteotomy(Right) - NISHA Parisi Bunionectomy Tailors(Right) - Moisés Mariano DPM Was Beta Sandy taken within 24 hours: Yes Was Clonidine taken within 24 hours: N/A Social Tobacco and No alcohol Exam alert, oriented x 3, clear to auscultation bilaterally and regular rate & rhythm Airway Submandibular: within normal limits Cervical ROM: within normal limits Mallampati: Class II Dentition: full Anesthetic Plan ASA status: 3 Anesthesia: General Other: No prior issues with anesthesia NPO since yesterday evening History of RA on adalimumab History of absence seizures, 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 Takes propranolol for headaches Patient was recently diagnosed with pseudotumor cerebri/idiopathic benign increased intracranial pressure. Patient being referred to neurosurgery for possible LOGISTICS TEAM LEADER shunt placement Labs reviewed 05/26/2024 and acceptable for procedure Plan for general anesthesia with post induction nerve block Medications/Allergies Home Medications Medication Instructions Recorded Confirmed Last Taken Type lithium carbonate 450 mg 1,350 mg PO DAILY 01/25/20 06/30/24 06/29/24 History tablet,extended release cholecalciferol (vitamin D3) 1,250 50,000 unit PO .weekly #12 caps 08/17/23 06/30/24 06/25/24 Rx mcg (50,000 unit) capsule propranolol 20 mg tablet 20 mg PO BID 08/17/23 06/30/24 06/30/24 History tizanidine 4 mg capsule 4 mg PO BID PRN muscle spasticity 05/17/24 06/30/24 06/29/24 Rx #60 caps adalimumab 40 mg/0.8 mL 40 mg (0.8 mL) SUBCUT Q14D #2 ea 05/30/24 06/30/24 06/17/24 Rx subcutaneous pen kit (Humira Pen) celecoxib 200 mg capsule (Celebrex) 200 mg PO BID #60 caps 05/30/24 06/30/24 06/29/24 Rx onabotulinumtoxinA 100 unit 155 unit IM Q90D #2 ea 06/20/24 06/30/24 Unknown Rx solution for injection (Botox) hydrocodone 10 mg-acetaminophen 1 tab PO Q4H PRN pain 7 days #30 06/29/24 Unknown Rx 325 mg tablet tabs leflunomide 20 mg tablet (Arava) 20 mg PO DAILY 06/30/24 06/30/24 06/29/24 History Allergies Allergy/AdvReac Type Severity Reaction Status Date / Time topiramate [From Topamax] Allergy ADR-Halluci Verified 06/30/24 06:10 maryana [facility] Anesthesia Medical History (System 06/07/24 @ 12:29 by Radha Chance) Seronegative rheumatoid arthritis of both hands Immunization counseling Inflammatory arthritis High risk medication use Dactylitis of finger Polyarthralgia Greater trochanteric bursitis of both hips IBS (irritable bowel syndrome) Bipolar 1 disorder Tenosynovitis of finger Surgical History (Updated 06/29/24 @ 12:38 by Moisés Mariano DPM) S/P foot surgery, left History of tonsillectomy H/O: hysterectomy History of esophagogastroduodenoscopy (EGD) Family History (System 06/07/24 @ 12:29 by Radha Chance) Denies family history of Diabetes Hypertension Social History (System 06/07/24 @ 12:29 by Radha Chance) Smoking and tobacco/nicotine status: former use of tobacco/nicotine Alcohol intake: never Substance/Drug Use: never Data Anesthesia Cardiac Studies: No Data to Display
--- NOTE | 2024-06-30 06:15 | W.PM.OPSUD ---
Surgery/Procedure H&P Update DATE OF PROCEDURE: June 30, 2024 DATE H&P PERFORMED: 06/19/24 H&P UPDATE INFORMATION: I have reviewed H&P completed within last 30 days, I have examined patient prior to procedure, No changes to prior documentation and [place] [facility] date indicated PREOP DIAGNOSIS: Flatfoot, bunion and hammertoes, right lower extremity PLANNED PROCEDURE: Operation Date: 06/30/24 07:00 Proposed Procedures p Subtalar Joint Fusion(Right) - NISHA Parisi Kidner Procedure(Right) - NISHA Parisi Bunionectharitha Lapidus(Right) - NISHA Parisi Jonatan Osteotomy(Right) - NISHA Parisi Hammertoe Correction second hammertoe correction, third hammertoe correction and fourth hammertoe correction.(Right) - NISHA Parisi Vasquez osteotomy(Right) - NISHA Parisi Bunionectharitha Tailors(Right) - Moisés Mariano DPM
[2024-06-30] MEDS: sodium chloride 0.9% 1,000 ML 30 ML IV (06:25)
[2024-06-30] MEDS: gabapentin 300 mg Capsule PO (06:26)
[2024-06-30] MEDS: CELEcoxib 200 mg Capsule 400 MG PO (06:26)
--- NOTE | 2024-06-30 06:50 | P.BOP_ITS ---
Date of Procedure: 10/29/23 Surgeon: Moisés Mariano DPM Associate Professor Of Musicology(s): Gerson Ferguson Kaylee Procedure(s) performed: Flatfoot reconstruction, bunionectomy, hammertoe correction toes 2 and 4 and tailor's bunionectomy all right foot. Findings of the procedure(s): None Estimated blood loss: 5 mL Specimen(s) removed: None Post-operative diagnosis: PTTD, pes planus, bunion, hallux valgus, hammertoe, tailor's bunion all right foot.
[2024-06-30] MEDS: ceFAZolin 2,000 mg SDV 2000 MG IVP (06:57)
--- NOTE | 2024-06-30 07:10 | ANES.PROC ---
Anesthesia Procedures Procedure/Date: 06/30/24 Nerve Block ^: Nerve Block 1: Main Anesthesia: general anesthesia Time Out Performed: Yes Consent: requested by attending/covering physician and from patient Nerve block location: popliteal Anesthesia monitors applied: pulse oximetry, EKG, BP cuff and oxygen Nerve block position: supine Anesthetic Used: ropivicaine 0.5% Amount of anesthesia used (mL): 25 Ultrasound used to: recognize landmarks Nerve Stimulator Used?: Yes Interscalene/Femoral BLK: other needle (pjunk 4inch) Injection: neg aspiration of heme Patient Tolerated Procedure: well Complications: none Additional Comments: decadron 4mg added to block Nerve Block 2: Main Anesthesia: general anesthesia Time Out Performed: Yes Consent: requested by attending/covering physician and from patient Nerve block location: adductor canal Anesthesia monitors applied: pulse oximetry, EKG, BP cuff and oxygen Nerve block position: supine Anesthetic Used: ropivicaine 0.5% Amount of anesthesia used (mL): 15 Ultrasound used to: recognize landmarks Nerve Stimulator Used?: Yes Interscalene/Femoral BLK: other needle (pjunk 4inch) Injection: neg aspiration of heme Patient Tolerated Procedure: well Complications: none
--- NOTE | 2024-06-30 09:08 | PC.NURSE ---
Called and updated patient's at [phone]
--- NOTE | 2024-06-30 10:32 | P.OP_ITS ---
Operative Report Date of procedure: June 30, 2024 Pre-op diagnosis: Right foot pain M79.671 Bunion, right M21.611 Acquired right flat foot M21.41 Posterior tibial tendon dysfunction (PTTD) of right lower extremity M76.821 Hammertoe of right foot M20.41 Right tailor's bunion. M21.621 Post-op diagnosis: Right foot pain M79.671 Bunion, right M21.611 Acquired right flat foot M21.41 Posterior tibial tendon dysfunction (PTTD) of right lower extremity M76.821 Hammertoe of right foot M20.41 Right tailor's bunion. M21.621 Procedure done: 1) right subtalar joint fusion. CPT code 75665 2) right Kidner. CPT code 60411 3) right Lapidus bunionectomy. CPT code 71195 4) right second hammertoe correction. CPT code 59703 5) right fourth hammertoe correction. CPT code 91026 5) right tailor's bunionectomy. CPT code 78829 Implants: Mcrae Helena 7 mm screws at subtalar joint Mcrae Helena Hammer tube at second and fourth hammertoe correction 0.062 K wire tailor's bunionectomy 3-0 Vicryl, 4-0 Vicryl, 4 nylon Specimens removed/disposition: No specimens Pathology: No pathology specimens Surgeon: Moisés Mariano DPM Crystal Gazer: Gerson Romeo Estimated blood loss: 5ml 2hrs 41min IV fluids: See intraoperative documentation Urine output: None Complications: No complications Brief History: Has failed accommodative shoes, therapy, activity modifications, anti- inflammatories, offloading with cam boot. Discussed surgical options and recoveries. Weightbearing x-ray 02/22/2024 right foot Hallux noted to be an abducted position. Tibial sesamoid position: 5. 1 ? 2 IM angle is 21 degrees. Hallux abductus angle is 40 degrees. Metatarsal adductus angle is 3 degrees. Sieberg index of 2 mm. Anterior break in cyma line 20% uncovering of talar head at the talonavicular joint Bipartite tibial sesamoid Right second hammertoe deformity right fourth hammertoe deformity right fifth hammertoe deformity right tailor's bunion discussed STJ fusion, Pedro Kearns and bunionectomy (lapidus and edwardo), 2nd and 4th hammer toe correction, possible 3rd right foot, tailor's bunionectomy right. I reviewed at length with the patient, the risks, potential complications, benefits, alternatives, expectations, and typical outcomes associated with the surgery. The risks and potential complications were explained in detail, including but not limited to infection, wound dehiscence or soft tissue complications, bleeding and hematoma, chronic edema, neuritis or nerve damage producing numbness or chronic pain, CRPS, failure to relieve pain or worsening pain, thick / painful / unsightly scar, limited motion / stiffness, malposition, delayed union, malunion, or nonunion, fracture, reaction to implants, anesthetic complications, venous thromboembolism, and deformity recurrence. I discussed the notion of no regrets with the patient as it pertains to complications and outcomes. The patient seemed to understand the nature of the proposed care and required convalescence. They asked appropriate questions, answere to their satisfaction. They are aware no guarantees can be made as to a satisfactory outcome and they understand there may be other possible unforeseen complications or outcomes not listed here that will be treated accordingly if they arise. There were no written or implied guarantees given to the patient. They gave informed consent to proceed. Procedure: Under mild sedation the patient was brought to the operating room and placed onto the operating table in supine position. A timeout was performed. Anesthesia was then administered by the anesthesia service. Of note right popliteal block was performed preoperatively per anesthesia. The right lower extremity was scrubbed, prepped and draped utilizing normal aseptic technique. A stockinette padded tourniquet was applied to the right hide calf. The right lower extremity was scrubbed, prepped and draped utilizing normal aseptic technique and then exanguinated with a Esmarch bandage and the tourniquet was then inflated to 250 mmHg. Attention was directed to the right rear foot where bony landmarks were palpated including the fourth metatarsal base, the fibula and lateral wall of the calcaneus of the right rear foot. A curvilinear incision was performed inferior to the fibula coursing distally toward the fourth metatarsal base through skin with a #15 blade with dissection carried down through subcutaneous tissue to the layer of fascia and the origin of the extensor digitorum brevis within the sinus tarsi, care was taken to retract and preserve neurovascular and tendinous structures. All bleeders were ligated and cauterized as necessary. The extensor digitorum brevis was sharply reflected off of its origin gaining access into the sinus tarsi and subsequent subtalar joint which was then distracted and prepared for arthrodesis via bone resurfacing total, curettage, rongeur, saline flush followed by subchondral drilling with a Mcrae Helena fenestrating drill bit both at the inferior surface of the talus and superior surface of the calcaneus at all 3 articular subtalar joint facets. The subtalar joint was pulled out of pronation and into a neutral position with a neutral cyma line and fixated utilizing Mcrae Helena 7 mm screws x 2 in a parallel fashion not violating the ankle mortise. These were inserted utilizing standard AO technique with excellent bony apposition and compression noted. Utilizing a calcaneal axial, lateral right foot and an AP of the right ankle confirmed excellent placement of the 7 mm screws for subtalar joint arthrodesis and no adjacent joints being violated. The incision was irrigated with saline solution, any bony voids were packed with V92 provided by Mcrae Helena and the incision was then closed in a layered fashion with periosteum reapproximated with 3-0 Vicryl, subcutaneous tissue with 4-0 Vicryl and skin with 4-0 nylon. Attention was directed to the right medial midfoot where bony landmark of tibial tuberosity was palpated, a curvilinear incision made to carry out a Lapidus bunionectomy and a Kidner procedure medial and parallel to the extensor hallucis longus tendon through skin with a #15 blade with dissection carried down through subcutaneous tissue to the layer of periosteum using sharp and blunt technique. The posterior tibial tendon was reflected off its insertion at the medial navicular approximately 75% of its attachment site in the posterior tibial tendon was sharply debrided of devitalized tendon which was degenerative in nature with thickening, fibrosing and calcifications involving approximately 50% of the tendon once the tendon was fully debrided it was tubularized and reat tached to the medial navicular utilizing 2-0 Vicryl. Attention was then directed to the right first metatarsal and medial cuneiform joint which was distracted and prepped for arthrodesis via Lapidus technique utilizing a sagittal saw with a wedge taken of the distal articular surface of the medial cuneiform were taken laterally to reduce the intermetatarsal angle as well as at the base of the first metatarsal with same technique, the intermetatarsal angle was reduced to parallel to the second metatarsal and the incision was irrigated with saline solution, subchondral drilling was performed with fenestrating drill bit at the arthrodesis site at both sides of the fusion site and excellent bony apposition and 3D anatomic reduction of the bunion deformity both in the frontal, transverse and sagittal plane followed by fixation of the arthrodesis site utilizing a Mcrae Helena 4 mm screw from dorsal distal to proximal plantar not violating the navicular cuneiform joint this was confirmed with AP and lateral view with intraoperative C arm additional fixation with a dorsal medial plate this with a locking plate with 3.5 millimeter screws and 1 screw coursing into the intermediate cuneiform for additional stability. Excellent reduction of the intermetatarsal angle and anatomic alignment of sesamoids was achieved after lateral release, medial bumpectomy was performed at the head of the first metatarsal, no Edwardo osteotomy indicated as the medial column was rectus with a Lapidus and soft tissue balancing. Incision was irrigated with saline solution and closed with periosteum and capsule r eapproximated with 3-0 Vicryl, subcutaneous tissue with 4 Vicryl and skin with 4-0 nylon. Attention was directed to the right second and fourth hammertoe deformities with sagittal plane dominance with apex of the deformity at the proximal interphalangeal joint both of the right second and fourth toes, linear incision was performed over the second and fourth toes at the level of the proximal inter phalangeal joint right foot through skin with a #15 blade with transection of the extensor tendons which were reflected proximally with a mosquito hemostat, the head of the proximal phalanx of the right second toe and right fourth toe were transected with a bone nipper and the base of the intermediate phalanx of the right second and fourth toe were denuded of articular surface and prepped for arthrodesis with a rongeur, the incision was irrigated with saline solution and fixated utilizing a Mcrae Helena hammer tube at the right second and fourth hammertoe correction site at the proximal phalangeal joint with excellent bony apposition and compression noted and anatomic alignment appreciated when loading the forefoot with a flat surface intraoperatively simulating weightbearing as well as with intraoperative C arm in AP, oblique and lateral views. The incisions were irrigated with saline solution and the extensor tendons were reapproximated with 4-0 Vicryl and skin approximated with 4-0 nylon. Attention was then directed to the right tailor's bunion where a linear incision was made dorsal lateral aspect of the right fifth metatarsal phalangeal joint through skin with dissection carried down to joint capsule and the metaphyseal flare of the fifth metatarsal head was identified and transected just proximal to the flare with a sagittal saw with the osteotomy from lateral to medial perp endicular to its longitudinal access and the head of the fifth metatarsal was translated medially anatomically reducing the tailor's bunion this was then fixated utilizing a 0.062 K wire covered with a Cherri ball, lateral eminence was transected and all rough edges smoothed, the incision was irrigated and closed with the capsule being reapproximated with 4-0 Vicryl, subcutaneous tissue with 4-0 Vicryl and skin with 4-0 nylon. Rectus forefoot rear foot appreciated, no indications for Vasquez osteotomy and no indications for Edwardo given the medial column being rectus. All incisions were dressed with Adaptic, sterile 4 x 4's, Kerlix, Josh wrap followed by a multilayer compressive posterior splint. Tourniquet was then deflated and a prompt hyperemic response is noted to the distal digits of the right foot. Patient tolerated the procedure and anesthesia well and was transferred to the PACU with vital signs stable and vascular status intact. Following a period of postoperative monitoring she was discharged home without home care instructions, scheduled follow-up in my cell phone to contact me with any postoperative questions or concerns.
[2024-06-30] MEDS: ondansetron 2 mg/ML SDV 2 mL 4 MG IVP (10:55)
[2024-06-30] MEDS: HYDROcodone-acetaminophen 10-325 mg Tablet 1 TAB PO (12:46)
--- NOTE | 2024-06-30 13:15 | ANE.PACU2 ---
Inpatient post-anesthesia follow up: Airway intact: Yes Vital signs: Temperature 97.2 F Pulse Rate 62 Respiratory Rate 18 Blood Pressure 108/71 Pulse Oximetry 95 Oxygen Delivery Me thod Room Air Oxygen Flow Rate 6 Fraction of Inspir ed Oxygen Hydration adequate: Yes Nausea and vomiting: No Pain level: 1 Mental status: Baseline
== END 2024-06-30 13:15 | disposition home or self-care (01) ==
PROVIDERS: PCP Family Medicine; Visit Provider Podiatrist Foot & Ankle Surgery
PROC: (CPT 28725; principal; 2024-06-30 07:00)
PROC: (CPT 28238; 2024-06-30 07:00)
PROC: (CPT 28297; 2024-06-30 07:00)
PROC: (CPT 28298; 2024-06-30 07:00)
PROC: (CPT 28285; 2024-06-30 07:00)
PROC: (CPT 28300; 2024-06-30 07:00)
PROC: 0QBP0ZZ Excision of Left Metatarsal, Open Approach (ICD-10-PCS; CPT 28110; 2024-06-30 07:00)
DX: M21.611 Bunion of right foot (principal); M21.41 Flat foot [pes planus] (acquired), right foot; M76.821 Posterior tibial tendinitis, right leg; M20.41 Other hammer toe(s) (acquired), right foot; M21.621 Bunionette of right foot; M06.9 Rheumatoid arthritis, unspecified; Z87.891 Personal history of nicotine dependence
CPT/HCPCS: 28725; 28008; 28238; 28285 ×2; 28297; 73620; 76000; C1713; J0131; J0690; J1100; J1171; J1885; J2250; J2405; J2704; J3010; J7030

== ENCOUNTER → 2024-07-11 15:56 | Outpatient (BNVA) | payer OTHER, SELFPAY | PROVIDERS: PCP Family Medicine; Visit Provider Podiatrist Foot & Ankle Surgery | DX: Z98.890 Other specified postprocedural states (principal); Z87.39 Personal history of other diseases of the musculoskeletal system and connective tissue; Z98.1 Arthrodesis status | CPT/HCPCS: 73630 ==

== ENCOUNTER → 2024-07-25 07:30 | Outpatient (BNVA) | payer OTHER, SELFPAY | PROVIDERS: PCP Family Medicine; Visit Provider Podiatrist Foot & Ankle Surgery | DX: Z98.890 Other specified postprocedural states (principal); T81.31XA Disruption of external operation (surgical) wound, not elsewhere classified, initial encounter; Y83.8 Other surgical procedures as the cause of abnormal reaction of the patient, or of later complication, without mention of misadventure at the time of the procedure; Z87.39 Personal history of other diseases of the musculoskeletal system and connective tissue; Z98.1 Arthrodesis status | CPT/HCPCS: 73630; 87070; 87075; 87077; 87186; 87205 ==

== ENCOUNTER 2024-08-14 08:23 | Outpatient (CLI) | payer OTHER, SELFPAY ==
[2024-08-14 08:46] LABS: Basophils # 0.1 10^3/uL (0.0-0.1); Basophils % 1.1 %; Eosinophils # 0.6 10^3/uL (0.0-0.8); Eosinophils % 8.1 %; Hematocrit 41.6 % (36-47); Lymphocytes # 1.4 10^3/uL (0.8-4.8); Mean Corpuscular Hemoglobin 29.3 pg (27-33); Mean Corpuscular Volume 94.5 fl (85-98); Mean Platelet Volume 10.7 fL (7.4-10.4); Monocytes # 0.8 10^3/uL (0.2-0.9); Monocytes % 10.9 %; Neutrophils # 4.63 10^3/uL (1.8-7.7); Neutrophils % 61.6 %; Nucleated Red Blood Cells % 0 %; Platelet Count 273 10^3/cmm (157-399); Red Cell Distribution Width 14.2 % (12.1-15.1); White Blood Count 7.51 10^3/uL (3.29-11.43)
[2024-08-14 08:52] LABS: Erythrocyte Sedimentation Rate 12 mm/hr (0-15)
[2024-08-14 09:03] LABS: Alanine Aminotransferase 30 U/L (0-33); Albumin Level 4.3 g/dL (3.5-5.2); Alkaline Phosphatase 63 U/L (35-105); Aspartate Amino Transferase 27 U/L (0-32); Globulin 2.8 g/dL (1.3-4.6); Glomerular Filtration Rate 91.8 mL/min (90-130); Total Bilirubin 0.8 mg/dL (0.15-1.2); Total Protein 7.1 g/dL (6.6-8.7)
== END 2024-08-14 08:24 | disposition home or self-care (01) ==
LOC: LAB 08:24
PROVIDERS: PCP Family Medicine; Visit Provider Podiatrist Foot & Ankle Surgery
DX: S91.309A Unspecified open wound, unspecified foot, initial encounter (principal); M19.90 Unspecified osteoarthritis, unspecified site; Z79.899 Other long term (current) drug therapy
CPT/HCPCS: 80076; 82565; 85025; 85651; 86140

== ENCOUNTER → 2024-08-17 07:14 | Outpatient (BNVA) | payer OTHER, SELFPAY | PROVIDERS: PCP Family Medicine; Visit Provider Podiatrist Foot & Ankle Surgery | DX: Z98.890 Other specified postprocedural states (principal) | CPT/HCPCS: 73630 ==

== ENCOUNTER → 2024-09-07 12:46 | Outpatient (BNVA) | payer OTHER, SELFPAY | PROVIDERS: PCP Family Medicine; Visit Provider Podiatrist Foot & Ankle Surgery | DX: Z98.890 Other specified postprocedural states (principal); T81.31XA Disruption of external operation (surgical) wound, not elsewhere classified, initial encounter; Y83.8 Other surgical procedures as the cause of abnormal reaction of the patient, or of later complication, without mention of misadventure at the time of the procedure; Z87.39 Personal history of other diseases of the musculoskeletal system and connective tissue; Z98.1 Arthrodesis status | CPT/HCPCS: 73630 ==

== ENCOUNTER → 2024-09-26 14:11 | Outpatient (BNVA) | payer OTHER, SELFPAY | PROVIDERS: PCP Family Medicine; Visit Provider Psychiatry & Neurology Neurology | DX: M54.81 Occipital neuralgia (principal); S16.1XXA Strain of muscle, fascia and tendon at neck level, initial encounter; R42 Dizziness and giddiness; H53.8 Other visual disturbances; G40.A09 Absence epileptic syndrome, not intractable, without status epilepticus; R55 Syncope and collapse; G43.909 Migraine, unspecified, not intractable, without status migrainosus; X58.XXXA Exposure to other specified factors, initial encounter | CPT/HCPCS: 36415; 80051; 82565; 82947; 84520 ==

== ENCOUNTER → 2024-10-05 06:50 | Outpatient (BNVA) | payer OTHER, SELFPAY | PROVIDERS: PCP Family Medicine; Visit Provider Podiatrist Foot & Ankle Surgery | DX: Z98.1 Arthrodesis status (principal); Z98.890 Other specified postprocedural states; Z87.39 Personal history of other diseases of the musculoskeletal system and connective tissue; M96.0 Pseudarthrosis after fusion or arthrodesis | CPT/HCPCS: 73630 ==

== ENCOUNTER → 2024-10-10 16:08 | Outpatient (BNVA) | payer OTHER, SELFPAY | PROVIDERS: PCP Family Medicine; Visit Provider Internal Medicine Rheumatology | DX: M06.041 Rheumatoid arthritis without rheumatoid factor, right hand (principal); M06.042 Rheumatoid arthritis without rheumatoid factor, left hand; Z79.899 Other long term (current) drug therapy; Z71.85 Encounter for immunization safety counseling | CPT/HCPCS: 36415; 80076; 82565; 85025; 85651; 86140 ==

== ENCOUNTER → 2024-11-02 06:45 | Outpatient (BNVA) | payer OTHER, SELFPAY | PROVIDERS: PCP Family Medicine; Visit Provider Podiatrist Foot & Ankle Surgery | DX: Z98.890 Other specified postprocedural states (principal); M96.0 Pseudarthrosis after fusion or arthrodesis; Z87.39 Personal history of other diseases of the musculoskeletal system and connective tissue; Z98.1 Arthrodesis status; S92.354K Nondisplaced fracture of fifth metatarsal bone, right foot, subsequent encounter for fracture with nonunion; X58.XXXD Exposure to other specified factors, subsequent encounter; M96.89 Other intraoperative and postprocedural complications and disorders of the musculoskeletal system; Y79.2 Prosthetic and other implants, materials and accessory orthopedic devices associated with adverse incidents | CPT/HCPCS: 73630 ==

== ENCOUNTER → 2024-11-30 07:00 | Outpatient (BNVA) | payer OTHER, SELFPAY | PROVIDERS: PCP Family Medicine; Visit Provider Podiatrist Foot & Ankle Surgery | DX: Z98.1 Arthrodesis status (principal); M96.0 Pseudarthrosis after fusion or arthrodesis; Z98.890 Other specified postprocedural states; Z87.39 Personal history of other diseases of the musculoskeletal system and connective tissue; S92.354K Nondisplaced fracture of fifth metatarsal bone, right foot, subsequent encounter for fracture with nonunion; X58.XXXD Exposure to other specified factors, subsequent encounter; M96.89 Other intraoperative and postprocedural complications and disorders of the musculoskeletal system | CPT/HCPCS: 73630 ==

== ENCOUNTER → 2025-01-04 14:34 | Outpatient (BNVA) | payer OTHER, SELFPAY | PROVIDERS: PCP Family Medicine; Visit Provider Podiatrist Foot & Ankle Surgery | DX: Z98.1 Arthrodesis status (principal); Z98.890 Other specified postprocedural states; M96.0 Pseudarthrosis after fusion or arthrodesis; Z87.39 Personal history of other diseases of the musculoskeletal system and connective tissue; S92.354K Nondisplaced fracture of fifth metatarsal bone, right foot, subsequent encounter for fracture with nonunion; M96.89 Other intraoperative and postprocedural complications and disorders of the musculoskeletal system; X58.XXXD Exposure to other specified factors, subsequent encounter | CPT/HCPCS: 73630 ==

== ENCOUNTER → 2025-02-01 06:58 | Outpatient (BNVA) | payer OTHER, SELFPAY | PROVIDERS: PCP Family Medicine; Visit Provider Podiatrist Foot & Ankle Surgery | DX: Z98.1 Arthrodesis status (principal); Z98.890 Other specified postprocedural states; M20.41 Other hammer toe(s) (acquired), right foot; M96.0 Pseudarthrosis after fusion or arthrodesis; Z87.39 Personal history of other diseases of the musculoskeletal system and connective tissue; S92.354K Nondisplaced fracture of fifth metatarsal bone, right foot, subsequent encounter for fracture with nonunion; X58.XXXD Exposure to other specified factors, subsequent encounter; M96.89 Other intraoperative and postprocedural complications and disorders of the musculoskeletal system | CPT/HCPCS: 73630 ==

== ENCOUNTER → 2025-02-20 16:12 | Outpatient (BNVA) | payer OTHER, SELFPAY | PROVIDERS: PCP Family Medicine; Visit Provider Psychiatry & Neurology Neurology | DX: G43.711 Chronic migraine without aura, intractable, with status migrainosus (principal) | CPT/HCPCS: 36415; 84132 ==

== ENCOUNTER → 2025-02-22 10:25 | Outpatient (BNVA) | payer OTHER, SELFPAY | PROVIDERS: PCP Family Medicine; Visit Provider Internal Medicine Rheumatology | DX: M06.041 Rheumatoid arthritis without rheumatoid factor, right hand (principal); M06.042 Rheumatoid arthritis without rheumatoid factor, left hand; Z79.899 Other long term (current) drug therapy; G43.711 Chronic migraine without aura, intractable, with status migrainosus | CPT/HCPCS: 36415; 80048; 80076; 82306; 85025; 85651; 86140; 86480; 86704; 86803; 87340 ==

== ENCOUNTER → 2025-03-08 06:50 | Outpatient (BNVA) | payer OTHER, SELFPAY | PROVIDERS: PCP Family Medicine; Visit Provider Podiatrist Foot & Ankle Surgery | DX: Z98.890 Other specified postprocedural states (principal); M96.0 Pseudarthrosis after fusion or arthrodesis; Z87.39 Personal history of other diseases of the musculoskeletal system and connective tissue; Z98.1 Arthrodesis status; S92.354K Nondisplaced fracture of fifth metatarsal bone, right foot, subsequent encounter for fracture with nonunion; M96.89 Other intraoperative and postprocedural complications and disorders of the musculoskeletal system; M20.41 Other hammer toe(s) (acquired), right foot | CPT/HCPCS: 73630 ==

== ENCOUNTER → 2025-04-05 06:58 | Outpatient (BNVA) | payer OTHER, SELFPAY | PROVIDERS: PCP Family Medicine; Visit Provider Podiatrist Foot & Ankle Surgery | DX: Z98.890 Other specified postprocedural states (principal); M96.0 Pseudarthrosis after fusion or arthrodesis; Z87.39 Personal history of other diseases of the musculoskeletal system and connective tissue; Z98.1 Arthrodesis status; S92.354K Nondisplaced fracture of fifth metatarsal bone, right foot, subsequent encounter for fracture with nonunion; X58.XXXD Exposure to other specified factors, subsequent encounter; M96.89 Other intraoperative and postprocedural complications and disorders of the musculoskeletal system; M20.41 Other hammer toe(s) (acquired), right foot | CPT/HCPCS: 73630 ==

== ENCOUNTER → 2025-04-26 06:51 | Outpatient (BNVA) | payer OTHER, SELFPAY | PROVIDERS: PCP Family Medicine; Visit Provider Podiatrist Foot & Ankle Surgery | DX: M96.0 Pseudarthrosis after fusion or arthrodesis (principal); Z98.890 Other specified postprocedural states; Z87.39 Personal history of other diseases of the musculoskeletal system and connective tissue; Z98.1 Arthrodesis status; S92.354K Nondisplaced fracture of fifth metatarsal bone, right foot, subsequent encounter for fracture with nonunion; M96.89 Other intraoperative and postprocedural complications and disorders of the musculoskeletal system; M20.41 Other hammer toe(s) (acquired), right foot; X58.XXXD Exposure to other specified factors, subsequent encounter | CPT/HCPCS: 73630 ==

== ENCOUNTER → 2025-06-07 06:50 | Outpatient (BNVA) | payer OTHER, SELFPAY | PROVIDERS: PCP Family Medicine; Visit Provider Podiatrist Foot & Ankle Surgery | DX: M96.0 Pseudarthrosis after fusion or arthrodesis (principal); Z98.890 Other specified postprocedural states; Z87.39 Personal history of other diseases of the musculoskeletal system and connective tissue; Z98.1 Arthrodesis status; S92.354K Nondisplaced fracture of fifth metatarsal bone, right foot, subsequent encounter for fracture with nonunion; M96.89 Other intraoperative and postprocedural complications and disorders of the musculoskeletal system; M20.41 Other hammer toe(s) (acquired), right foot; X58.XXXD Exposure to other specified factors, subsequent encounter | CPT/HCPCS: 73630 ==

== ENCOUNTER 2025-06-22 05:54 | Day surgery (SDC) | payer OTHER, SELFPAY ==
[2025-06-22] VITALS (13 sets, daily range): BP systolic 93–155; BP diastolic 63–106; PULSE 51–69; RESP 15–21; TEMP 36.1–36.9; O2SAT 92–95; BMI 49.1
--- NOTE | 2025-06-22 | XR_ITS ---
WS: [id number] Exam: XR foot RT 2V [id number] Date/Time of Exam: 06/22/2025 12:00 AM Reason For Exam: MYA PICS Intraoperative AP and lateral C-arm images of the hindfoot are submitted. Images were obtained for intraoperative visualization purposes.
--- NOTE | 2025-06-22 06:35 | P.HPUD_ITS ---
Surgery/Procedure H&P Update DATE OF PROCEDURE: June 22, 2025 DATE H&P PERFORMED: 06/07/25 H&P UPDATE INFORMATION: I have reviewed H&P completed within last 30 days, I have examined patient prior to procedure, No changes to prior documentation, H&P is in [facility] EMR on date indicated and Risks and benefits of the procedure reviewed PREOP DIAGNOSIS: Nonunion right subtalar joint, right hallux valgus. PLANNED PROCEDURE: Operation Date: 06/22/25 07:00 Proposed Procedures p Hardware Removal Calcaneous & Hardware removal right midfoot(Right) - Moisés Mariano DPM s Arthrodesis Subtalar Joint Subtalar Joint Fusion(Right) - NISHA Parisi Lateral Release for Right Hallux Valgus(Right) - Moisés Mariano DPM
--- NOTE | 2025-06-22 06:38 | ANES.PREANE2 ---
Pre-Anesthetic Assessment Height/Weight: Height 5 ft 1 in Weight 260 lb Temp Pulse Resp BP Pulse Ox O2 Del Method 97.3 F L 69 18 155/106 95 Room Air 06/22/25 06:03 06/22/25 06:03 06/22/25 06:03 06/22/25 06:03 06/22/25 06:03 06/22/25 06:03 Preop Diagnosis: Nonunion right subtalar joint, right hallux valgus. Operation Date: 06/22/25 07:00 Proposed Procedures p Hardware Removal Calcaneous & Hardware removal right midfoot(Right) - Moisés Mariano DPM s Arthrodesis Subtalar Joint Subtalar Joint Fusion(Right) - Moisés Mariano DPM s Lateral Release for Right Hallux Valgus(Right) - Moisés Mariano DPM Was Beta Sandy taken within 24 hours: Yes Was Clonidine taken within 24 hours: N/A Last intake: Intake Last Liquid Date 06/21/25 Last Liquid Time 21:30 Last Solid Date 06/21/25 Last Solid Time 11:00 Social No alcohol and No tobacco Exam alert, oriented x 3, clear to auscultation bilaterally and regular rate & rhythm Airway Submandibular: within normal limits Cervical ROM: within normal limits Mallampati: Class III Dentition: full Anesthetic Plan ASA status: 3 Anesthesia: General and Regional (specify below) Other: No prior issues with anesthesia NPO since yesterday evening Laryngeal dystonia Chronic migraines RA, on Humira but patient has not taken this for 6 weeks BMI 49 Labs reviewed from earlier this year which were all WNL Plan for general anesthesia with peripheral nerve block Medications/Allergies Home Medications ?Medication ?Instructions ?Recorded ?Confirmed ?Last Taken ?Type lithium carbonate 450 mg 1,350 mg PO DAILY 01/25/20 06/22/25 06/20/25 History tablet,extended release propranolol 20 mg tablet 20 mg PO BID 08/17/23 06/22/25 06/21/25 History potassium chloride 10 mEq 10 meq PO BID #60 caps 09/26/24 06/22/25 06/14/25 Rx capsule,extended release Bone Stimulator #1 ea 11/16/24 06/14/25 Unknown Rx cholecalciferol (vitamin D3) 1,250 50,000 unit PO .weekly #12 caps 02/20/25 06/22/25 06/17/25 Rx mcg (50,000 unit) capsule furosemide 20 mg tablet (Lasix) 20 mg PO BID #60 tabs 02/20/25 06/22/25 06/21/25 Rx onabotulinumtoxinA 100 unit 155 unit IM Q90D #2 ea 03/05/25 06/22/25 06/14/25 Rx solution for injection (Botox) adalimumab-atto 40 mg/0.4 mL 40 mg (0.4 mL) SUBCUT Q14D #0.8 mL 03/14/25 06/22/25 05/17/25 Rx subcutaneous syringe (Amjevita(CF)) leflunomide 20 mg tablet (Arava) 20 mg PO DAILY #90 tabs 03/14/25 06/22/25 05/17/25 Rx celecoxib 200 mg capsule (Celebrex) 200 mg PO BID #60 caps 04/17/25 06/22/25 06/21/25 Rx oxybutynin chloride 5 mg tablet 5 mg PO BID 06/21/25 06/22/25 06/21/25 History tizanidine 4 mg capsule 4 mg PO BID PRN Spasms 06/21/25 06/22/25 06/21/25 History Allergies Allergy/AdvReac Type Severity Reaction Status Date / Time topiramate (From Topamax) Allergy ADR-Halluci Verified 06/22/25 06:01 [facility] Anesthesia Medical History (Updated 06/14/25 @ 13:42 by Stephie Cuenca MD) Seronegative rheumatoid arthritis of both hands Immunization counseling Inflammatory arthritis High risk medication use Dactylitis of finger Polyarthralgia Greater trochanteric bursitis of both hips IBS (irritable bowel syndrome) Bipolar 1 disorder Tenosynovitis of finger Surgical History S/P foot surgery, left History of tonsillectomy H/O: hysterectomy History of esophagogastroduodenoscopy (EGD) Family History Denies family history of Diabetes Hypertension Social History Smoking and tobacco/nicotine status: current every day tobacco/nicotine user cigarettes Alcohol intake: never Substance/Drug Use: never
[2025-06-22] MEDS: ceFAZolin 2,000 mg SDV 2000 MG IVP (07:13)
--- NOTE | 2025-06-22 07:38 | ANES.PROC ---
Anesthesia Procedures Procedure/Date: 06/22/25 Right popliteal nerve block and right adductor canal block for postoperative pain control Nerve Block ^: Nerve Block 1: Main Anesthesia: general anesthesia Time Out Performed: Yes Consent: requested by attending/covering physician and from patient Laterality: Right Nerve block location: popliteal Anesthesia monitors applied: pulse oximetry, EKG, BP cuff and oxygen Nerve block position: supine Anesthetic Used: ropivicaine 0.5% Amount of anesthesia used (mL): 25 Ultrasound used to: recognize landmarks Nerve Stimulator Used?: Yes Interscalene/Femoral BLK: other needle (pjunk 4inch) Injection: neg aspiration of heme Patient Tolerated Procedure: well Complications: none Additional Comments: Decadron 4 mg added to block Nerve Block 2: Main Anesthesia: general anesthesia Time Out Performed: Yes Consent: requested by attending/covering physician and from patient Laterality: Right Nerve block location: adductor canal Anesthesia monitors applied: pulse oximetry, EKG, BP cuff and oxygen Nerve block position: supine Anesthetic Used: ropivicaine 0.5% Amount of anesthesia used (mL): 20 Ultrasound used to: recognize landmarks Nerve Stimulator Used?: No Injection: neg aspiration of heme Patient Tolerated Procedure: well Complications: none
--- NOTE | 2025-06-22 08:39 | PC.NURSE ---
Patient's called and updated regarding surgical progress
--- NOTE | 2025-06-22 09:07 | PC.NURSE ---
patient wanted removed hardware, agreed so hardware sent to CS to be sterilized and given to patient.
--- NOTE | 2025-06-22 09:29 | P.BOP_ITS ---
Date of Procedure: 10/29/23 Surgeon: Moisés Mariano DPM [employer] Supervisor(s): Xiomara Nieto Procedure(s) performed: Hardware removal x 2 right foot, right bunion lateral release, right subtalar joint fusion Findings of the procedure(s): Nonunion right subtalar joint Estimated blood loss: 5 mL Specimen(s) removed: None Post-operative diagnosis: Nonunion right subtalar joint, right bunion, right foot painful hardware.
--- NOTE | 2025-06-22 09:31 | P.OP_ITS ---
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 Procedure done: 1) hardware removal right calcaneus. CPT code 84071 2) hardware removal right midfoot. CPT code 06621 3) right subtalar joint fusion. CPT code 06009 4) lateral release for right hallux valgus. CPT code 86803 Implants: 3-0 Vicryl, 4-0 Vicryl, 4-0 nylon, V92 by [place] 28, [place] 7 mm screw x 2, [place] 5.5 millimeter screw x 2. Specimens removed/disposition: None Pathology: None Surgeon: Moisés Mariano DPM [employer] Spring Winder: Agueda Nieto Estimated blood loss: 5 128 IV fluids: See intraoperative documentation Urine output: None Complications: No complications encountered Findings: Nonunion right subtalar joint. Brief History: X-ray shows concern for nonunion subtalar joint, right foot. Would like to discuss revisional arthrodesis will include hardware removal, subtalar joint fusion, hardware removal of most proximal screw at the Lapidus site and soft tissue release right bunion. I reviewed at length with the patient, the risks, potential complications, benefits, alternatives, expectations, and typical outcomes associated with the surgery. The risks and potential complications were explained in detail, including but not limited to infection, wound dehiscence or soft tissue complications, bleeding and hematoma, chronic edema, neuritis or nerve damage producing numbness or chronic pain, CRPS, failure to relieve pain or worsening pain, thick / painful / unsightly scar, limited motion / stiffness, malposition, delayed union, malunion, or nonunion, fracture, reaction to implants, anesthetic complications, venous thromboembolism, and deformity recurrence. I discussed the notion of no regrets with the patient as it pertains to complications and outcomes. The patient seemed to understand the nature of the proposed care and required convalescence. They asked appropriate questions, answered to their satisfaction. They are aware no guarantees can be made as to a satisfactory outcome and they understand there may be other possible unforeseen complications or outcomes not listed here that will be treated accordingly if they arise. There were no written or implied guarantees given to the patient. They gave informed consent to proceed. Procedure: Under mild sedation patient was brought to the operating room and remained on the gurney in supine position. A timeout was performed. Anesthesia was then ad ministered by the anesthesia service. Of note right popliteal block performed per anesthesia preoperatively. Well-padded pneumatic tourniquet applied to the right ankle. The right lower extremity was scrubbed, prepped and draped utilizing normal aseptic technique. Right foot and ankle were exanguinated with an Esmarch bandage and tourniquet inflated to 250 mmHg. 1. Hardware Removal (Right Subtalar Joint) Attention was directed to right posterior heel utilizing K wire and C arm guidance a posterior heel incision was made and carried through subcutaneous tissue. Dissection proceeded to the right subtalar joint. Hardware from previous fixation, consisting of two 7.0 mm screws, was identified and removed without fragmentation or failure. 2. Right Subtalar Joint Arthrodesis (Nonunion Repair) A separate incision was made over the right sinus tarsi to access the subtalar joint. The joint was noted to have a nonunion. The fibrous tissue and nonunion site were thoroughly debrided and resected to healthy, bleeding bone using appropriate curettage and osteotomes. The joint surfaces were prepped for arthrodesis. The subtalar joint was positioned in anatomical alignment and temporarily stabilized. Definitive fixation was achieved utilizing two 7.0 mm parallel [place] screws and one 5.5 mm [place] screw. The screws were placed from inferior to superior, spanning the calcaneus and talus, providing excellent compression and fixation across the arthrodesis site. AP oblique and lateral views of the right foot demonstrate excellent placement of hardware, 7 mm screws were opposing and direction to provide additional compression. AP of the ankle joint confirmed excellent placement of hardware within the talus. Arthrodesis site was packed with V92. 3. Right Hallux Valgus Lateral Release Attention was turned to the right forefoot. A lateral release of the right hallux valgus deformity was performed using a #15 blade through a small incision adjacent to the first metatarsophalangeal joint. Fibular sesamoid ligament was released in an improved hallux position appreciated post soft tissue release. 4. Hardware Removal (Right Medial Forefoot) An incision was made over the right medial forefoot at the previous Lapidus arthrodesis site. One screw implanted from the previous Lapidus bunionectomy was identified and successfully removed. 5. Wound Closure and Dressing All surgical sites were copiously irrigated. Hemostasis was confirmed. The deep layers were closed with 3-0 Vicryl and 4-0 Vicryl sutures. The skin was closed with 4-0 nylon sutures. The wounds were dressed with Xeroform, sterile 4x4 gauze, and Kerlix. A posterior splint was then applied to the right lower extremity. The patient tolerated the procedure well, and there were no intraoperative complications. Patient tolerated the procedure and anesthesia well and was transferred to the PACU with vital signs stable and vascular status intact. Following a period of postoperative monitoring should be discharged home without home care instructions and scheduled follow-up.
[2025-06-22] MEDS: ondansetron 2 mg/ML SDV 2 mL 4 MG IVP (09:59)
--- NOTE | 2025-06-22 10:20 | PC.NURSE ---
Patient refusing pain medication at this time.
[2025-06-22] MEDS: HYDROcodone-acetaminophen 10-325 mg Tablet 1 TAB PO (10:54)
--- NOTE | 2025-06-22 11:07 | ANE.PACU2 ---
Inpatient post-anesthesia follow up: Airway intact: Yes Vital signs: Temperature 97.0 F Pulse Rate 53 Respiratory Rate 18 Blood Pressure 126/82 Pulse Oximetry 93 Oxygen Delivery Me thod Room Air Oxygen Flow Rate Fraction of Inspir ed Oxygen Hydration adequate: Yes Nausea and vomiting: No Pain level: 1 Mental status: Baseline
== END 2025-06-22 11:07 | disposition home or self-care (01) ==
PROVIDERS: PCP Family Medicine; Visit Provider Podiatrist Foot & Ankle Surgery
PROC: (CPT 28725; principal; 2025-06-22 07:00)
PROC: (CPT 28725; 2025-06-22 07:00)
PROC: (CPT 28111; 2025-06-22 07:00)
DX: M96.0 Pseudarthrosis after fusion or arthrodesis (principal); M20.11 Hallux valgus (acquired), right foot; T84.84XA Pain due to internal orthopedic prosthetic devices, implants and grafts, initial encounter; Y70.2 Prosthetic and other implants, materials and accessory anesthesiology devices associated with adverse incidents; M06.9 Rheumatoid arthritis, unspecified; F31.9 Bipolar disorder, unspecified; F17.210 Nicotine dependence, cigarettes, uncomplicated
CPT/HCPCS: 28725; 20680; 28292; 64447; 64445; 73620; 76000; C1713; J0131; J0690; J1100; J1171; J1200; J2250; J2371; J2405; J2704; J3010; J3490; J7030; J9999

== ENCOUNTER → 2025-07-05 06:52 | Outpatient (BNVA) | payer OTHER, SELFPAY | PROVIDERS: PCP Family Medicine; Visit Provider Podiatrist Foot & Ankle Surgery | DX: Z98.890 Other specified postprocedural states (principal) | CPT/HCPCS: 73630 ==

== ENCOUNTER → 2025-07-17 13:54 | Outpatient (BNVA) | payer OTHER, SELFPAY | PROVIDERS: PCP Family Medicine; Visit Provider Internal Medicine Rheumatology | DX: M06.041 Rheumatoid arthritis without rheumatoid factor, right hand (principal); M06.042 Rheumatoid arthritis without rheumatoid factor, left hand; Z79.899 Other long term (current) drug therapy | CPT/HCPCS: 36415; 80076; 82565; 85025; 85651; 86140 ==

== ENCOUNTER → 2025-08-02 07:02 | Outpatient (BNVA) | payer OTHER, SELFPAY | PROVIDERS: PCP Family Medicine; Visit Provider Podiatrist Foot & Ankle Surgery | DX: Z98.890 Other specified postprocedural states (principal) | CPT/HCPCS: 73630 ==

== ENCOUNTER → 2025-08-07 07:49 | Outpatient (BNVA) | payer OTHER, SELFPAY | PROVIDERS: PCP Family Medicine; Visit Provider Podiatrist Foot & Ankle Surgery | DX: Z98.890 Other specified postprocedural states (principal) | CPT/HCPCS: 73630 ==